=== PATIENT | male | born 1950 | race Caucasian/White ===

== ENCOUNTER 2018-05-21 06:28 | Day surgery (SDC) | payer OTHER ==
[2018-05-21] MEDS ORDERED: SODIUM CHLORIDE IRRIG SOLUTION 3,000 ML IRRIG.SOLN IR ONE (08:48)
[2018-05-21] MEDS ORDERED: FENTANYL CITRATE/PF 250 MCG/5 ML INJ. ONE (08:48)
[2018-05-21] MEDS ORDERED: FAMOTIDINE 20 MG/2 ML VIAL IV ONE (08:48)
[2018-05-21] MEDS ORDERED: ROCURONIUM BROMIDE 10 MG/ML 5ML VIAL ONE (08:48)
[2018-05-21] MEDS ORDERED: GLYCOPYRROLATE 0.2 MG/1 ML 1 ML ONE (08:48)
[2018-05-21] MEDS ORDERED: SUGAMMADEX SODIUM 200 MG/2 ML VIAL IV ONE (08:48)
[2018-05-21] MEDS ORDERED: DEXAMETHASONE SODIUM PHOSPHATE 10 MG/ML VIAL ONE (08:48)
[2018-05-21] MEDS ORDERED: ENOXAPARIN SODIUM 40 MG/0.4 ML DISP.SYRIN SQ ONE (08:48)
[2018-05-21] MEDS ORDERED: LIDOCAINE HCL 2% PF 100MG/5ML VIAL IJ ONE (08:48)
[2018-05-21] MEDS ORDERED: BUPIV. HCL 0.25% (2.5MG/ML)/EPI. (1:200,000) PF 30 ML VIAL IJ ONE (08:48)
[2018-05-21] MEDS ORDERED: ONDANSETRON HCL/PF 4 MG/ 2ML VIAL ONE (08:48)
[2018-05-21] MEDS ORDERED: LACTATED RINGERS 1,000 ML IV.SOLN IV ONE ×2 (08:48)
[2018-05-21] MEDS ORDERED: PROPOFOL 200 MG/20 ML VIAL IV ONE (08:48)
[2018-05-21] MEDS ORDERED: LIDOCAINE HCL 1% PF 300MG/30ML VIAL ONE (08:48)
[2018-05-21] MEDS ORDERED: SEVOFLURANE 250 ML LIQUID IH ONE (08:48)
[2018-05-21] MEDS ORDERED: ePHEDrine SULFATE 50 MG/1 ML IVP ONE (08:48)
[2018-05-21] MEDS ORDERED: CLINDAMYCIN PHOSPHATE 900 MG/6 ML VIAL ONE (08:48)
[2018-05-21] MEDS ORDERED: LEVALBUTEROL NEB 1.25 MG/3 ML VIAL.NEB NEB ONE (08:48)
--- NOTE | 2018-05-22 10:58 | Operative Note ---
PREOPERATIVE DIAGNOSIS: 1. Morbid obesity. 2. Type 2 diabetes. 3. Hypertension. 4. Gastroesophageal reflux disease. 5. Arthritis. POSTOPERATIVE DIAGNOSIS: 1. Morbid obesity. 2. Type 2 diabetes. 3. Hypertension. 4. Gastroesophageal reflux disease. 5. Arthritis. PROCEDURES PERFORMED: 1. Laparoscopic vertical sleeve gastrectomy. 2. Upper gastrointestinal endoscopy. SURGEON: Afshin Caldera M.D. INDICATIONS FOR PROCEDURE: Mr. Ellis is a 67-year-old male who presented with complaints of features of morbid obesity. He was noted to have a weight of 249 pounds with a BMI of 37.7. The patient was advised laparoscopic vertical sleeve gastrectomy and possible hiatal hernia repair. The patient showed understanding and agreed to proceed. DESCRIPTION OF PROCEDURE: After explaining to the patient in detail and informed consent was obtained, the patient was identified in the preoperative holding area. The patient was transferred to the operating room and was placed in supine position. Sequential compressive devices were placed for DVT prophylaxis. Preoperative antibiotics were given. After induction of anesthesia, the abdomen was prepped and draped in a sterile fashion. Through a left upper quadrant 1-cm incision, and using Optiview technique, the peritoneal cavity was entered and pneumoperitoneum was created. Thereafter, under direct vision, another 5-mm trocar was placed in the left midabdomen and another 15-mm trocar was placed in the right midabdomen. Through a 1-cm incision in the right subcostal region, another 5-mm trocar was placed. Through a 1-cm incision in the epigastrium, a Marjorie retractor was introduced and the left lobe of the liver was retracted. On initial inspection, the patient was noted to have no evidence of hiatal hernia. I took down the gastroepiploic vessels using a LigaSure. This was continued superiorly. The short gastric vessels were taken down. The gastrophrenic ligament was divided and the Angle of His was mobilized. The posterior attachments of the stomach on the pancreas were released. Distally, the gastroepiploic vessels were taken down up to about 4 cm proximal to the pylorus. At this point, a #38 Danish Hurst Bougie was introduced into the stomach and was placed along the lesser curve. The stomach was then divided in a vertical fashion with multiple Endo LEI Covidien Black Load Staplers. The first firing was directed outwards towards the greater curvature. Subsequent firings were directed towards the Angle of His to create a loose sleeve around the #38 Danish bougie. The bougie was then removed and an upper GI endoscopy was performed at this point. The scope was introduced into the esophagus and was gradually advanced into the stomach. The GE junction appeared normal. The sleeve size appeared normal. No evidence of any active bleeding was noted. The stomach was insufflated with air and irrigation of fluid along the staple line revealed no evidence of air leak. The stomach was then suctioned out and the scope was removed. Absolute hemostasis was ensured. Thorough saline irrigation was given. The Marjorie retractor was removed. Approximately 10 mL of a lidocaine- Marcaine mix was instilled under the left hemidiaphragm. The sleeve gastrectomy specimen was removed. The abdomen was then deflated. The incisions were closed with 4-0 Monocryl. Dermabond was applied. Approximately 10 mL of a lidocaine- Marcaine mix was injected into all the incisions. The patient was awakened from anesthesia and was transferred to the recovery room in stable condition. ESTIMATED BLOOD LOSS: Approximately 10 mL. CONDITION OF THE PATIENT: Stable. FLUIDS GIVEN: Per Anesthesia note. SPECIMEN(S) SENT: Sleeve gastrectomy specimen. COMPLICATIONS: None. ANESTHESIA: General. Afshin Caldera M.D. PRADEEP/kenisha Job #[id number] @ 0908 @ 1028 MTDD
== END 2018-05-21 10:20 | disposition other institution (70) ==
LOC: OPSURG 06:28
PROVIDERS: ATTEND Surgery
DX: E66.01 Morbid (severe) obesity due to excess calories (principal); Z68.37 Body mass index [BMI] 37.0-37.9, adult; E11.9 Type 2 diabetes mellitus without complications; I10 Essential (primary) hypertension; K21.9 Gastro-esophageal reflux disease without esophagitis; M19.90 Unspecified osteoarthritis, unspecified site
CPT/HCPCS: 43235; 43775; J1650; J2001; J2405; J2704; J3490; J7120; J7614

== ENCOUNTER 2018-05-21 10:21 | Inpatient (IN) | payer OTHER ==
[2018-05-21] MEDS ORDERED: MORPHINE SULFATE 10MG/0.5ML ORAL SOLN UD CUP PO PRN (10:31)
[2018-05-21] MEDS ORDERED: HYDROCODON-ACETAMIN 7.5-325/15ML SOLN UD CUP PO PRN (10:31)
[2018-05-21] MEDS ORDERED: ONDANSETRON HCL/PF 4 MG/ 2ML VIAL IVP PRN (10:31)
[2018-05-21] MEDS ORDERED: diphenhydrAMINE HCL 50 MG/ML VIAL IVP PRN (10:31)
[2018-05-21] MEDS ORDERED: MORPHINE SULFATE 4 MG/ML VIAL IVP PRN ×2 (10:31)
[2018-05-21] MEDS ORDERED: LEVALBUTEROL NEB 1.25 MG/3 ML VIAL.NEB IH PRN (10:31)
[2018-05-21 10:45] VITALS: BMI 38.5
--- NOTE | 2018-05-21 10:46 | History and Physical Report ---
History of Present Illnes - History of Present Illness Reason for Visit: S/P GASTRIC SLEEVE SURGERY History of Present Illness: Patient is a 67-year-old male who has tried multiple diets and exercise programs with no success. He has always struggled with his weight. He admits to binge eating. He has tried many diet plans, has tried many "fad" diets- he states that he would lose a little but would always gain it back and then some. Patient and surgeon decided to proceed with gastric sleeve procedure. Procedure went well- patient will be admitted and monitored s/p surgical intervention. Patient has been on a liquid diet prior to surgery so he is a risk of dehydration s/p surgery and with a history of diabetes. He will be admitted for IV hydration to help hydrate patient until he is able to tolerate a sufficient oral intake, will treat pain with IV medication until patient is able to tolerate oral meds, IV antiemetics to help reduce episodes of nausea and/or vomiting. Patient will be monitored closely using telemetry d/t h/o HTN and DM and will monitor blood pressures and blood sugar d/t obesity. - Past Medical History Cardiac: HTN, Hyperlipidemia, Other (EF 60%) Pulmonary: COPD Gastrointestinal: GERD Musculoskeletal: Osteoarthritis Infectious Disease: HIV Endocrine: Diabetes Dermatology: Other (varicose veins) - Past Surgical History Past Surgical History: Cholecystectomy, Other (Back 2015), Other (Foot 1969) - Past Family History Mother Family History: Cancer Father Family History: CAD - Past Social History Smoke: Quit (in 1988) Alcohol: None Drugs: None Lives: Alone Domestic Violence: Negative - Health Maintenance Health Maintenance: Influenza Vaccine, Pneumococcal Vaccine, HIV Influenza Vaccine: Current for this Influenza Season Pneumonia Vaccine: Yes Resuscitation Status: Resusciation Status Resuscitation Status Full Code - Unable to Obtain History Unable to Obtain: No Review of Systems - Review of Systems Constitutional: Weakness, Other (Still very tired s/p surgery) Eyes: negative: conjunctivae inflammation, eyelid inflammation ENT: negative: Ear Pain, Nose Discharge, Throat Pain Respiratory: negative: Cough, Shortness of Breath Cardiovascular: negative: Chest Pain, Light Headedness Gastrointestinal: Nausea (minimal- still drowsy), Abdominal Pain (minimal upon admission). negative: Vomiting Genitourinary: negative: Dysuria Musculoskeletal: negative: Back Pain Skin: negative: Rash, Other (dressing x 5 to abdomen) Neurological: Weakness - Medications/Allergies Allergies/Adverse Reactions: Allergies Allergy/AdvReac Type Severity Reaction Status Date / Time midazolam [From Versed] Allergy Severe Anaphylaxis Verified 05/21/18 09:27 Current Inpatient Medications: Current Inpatient Medications Hydrocodone Bitart/Acetaminophen (Hycet 7.5-325mg/15 Ml Ud Cup) 15 ml PO Q4 PRN PRN Reason: Moderate Pain (Score 5-7) Stop: 05/25/18 10:30 Diphenhydramine HCl (Benadryl) 25 mg IVP Q6H PRN PRN Reason: Sleeping and Itching Stop: 05/25/18 10:30 Enoxaparin Sodium (Lovenox) 40 mg SQ DAILY [facility] Stop: 06/05/18 08:59 Famotidine (Pepcid) 20 mg IVP BID [facility] Stop: 05/25/18 20:59 Promethazine HCl 25 mg/ Sodium (Chloride) 51 mls @ 200 mls/hr IV Q6 PRN PRN Reason: Nausea / Vomiting Stop: 05/25/18 10:30 Sodium Chloride (Normal Saline) 1,000 mls @ 150 mls/hr IV Q8H [facility] Clindamycin Phosphate 600 mg/ (Water) 50 mls @ 50 mls/hr IV Q8H [facility] Stop: 05/22/18 00:59 Ketorolac Tromethamine (Toradol) 30 mg IV Q6H PRN PRN Reason: For Mild Pain Stop: 05/25/18 10:30 Levalbuterol HCl (Xopenex Neb) 1.25 mg IH Q4H PRN PRN Reason: Wheezing Miscellaneous (Chem Sticks) 1 each MC Q6H [facility] Morphine Sulfate () 2 mg IVP Q2 PRN PRN Reason: PAIN 5-7 Morphine Sulfate () 4 mg IVP Q2 PRN PRN Reason: PAIN 8-10 Morphine Sulfate (Roxanol) 10 mg PO Q4 PRN PRN Reason: Severe Pain (Score 8-10) Stop: 05/25/18 10:30 Ondansetron HCl (Zofran) 4 mg IVP Q6H PRN PRN Reason: Nausea / Vomiting Stop: 05/25/18 10:30 Exam - Exam General: Alert, Oriented to Person, Oriented to Place, Oriented to Time, Cooperative (still very drowsy), Morbidly Obese HEENT: PERRLA, Mouth Mucous membr. moist/[place], Nose Mucous membr. moist/[place] Neck: Normal Range of Motion Carotids: No bruit Lungs: Clear to auscultation, Normal air movement. No: Respiratory Distress Cardiovascular: Regular rate, Normal S1, Normal S2 Peripheral Edema: None Peripheral Pulses: 2+ Abdomen: Soft, Decreased Bowel Sounds Integumentary: Normal, Warm, Dry, Pale, Other (Incision site x5- drsgs dry and intact) Extremities: No edema, Normal pulses, No tenderness/swelling Neurological: Normal speech, Strength Equal Bilat, Sensation intact Psych/Mental Status: Mental status NL, Mood NL Assessment/Plan - Assessment/Plan (1) S/P gastric surgery Status: Acute Current Visit: Yes Plan: Plan to admit for IV hydration, IV pain meds, and IV antiemetics. Lovenox and SCDs to help prevent DVTs, IS and frequent ambulation will be implemented. Start ice chips and advance diet as tolerated. (2) Morbid obesity due to excess calories Status: Acute Current Visit: Yes Plan: Patient is s/p gastric sleeve. We will assist patient with implementing gastric sleeve diet protocol starting with ice chips and clear liquids and advancing as tolerated. (3) Hypertension Status: Acute Current Visit: Yes Qualifiers: Hypertension type: essential hypertension Qualified Code(s): I10 - Essential (primary) hypertension Plan: Will hold blood pressure medications and monitor blood pressure closely- may have to restart meds. 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 Plan: Patient will ambulate frequently, pain medication will be given as directed, Patient may have K-pad (heating pad) if wanting (6) COPD (chronic obstructive pulmonary disease) Status: Acute Current Visit: Yes Qualifiers: COPD type: unspecified COPD Qualified Code(s): J44.9 - Chronic obstructive pulmonary disease, unspecified Plan: Order for supplemental oxygen if needed, Xopenox prn, will implement IS to use f requent VTE Assessment - RISK FACTOR SCORE VTE RISK FACTOR SCORES: AGE OVER 60 YEARS, OBESITY, MAJOR SURGERY/ANESTHESIA TIME > 1 HOUR (Lovenox daily, SCDs while in bed, frequent ambulation)
[2018-05-21] MEDS: 0.9 % SODIUM CHLORIDE 1,000 ML IV SCH ×2 (10:59→18:08)
[2018-05-21] MEDS: KETOROLAC TROMETHAMINE 30 MG/1ML VIAL IV PRN (11:28)
[2018-05-21] MEDS ORDERED: CLINDAMYCIN PHOSPHATE/D5W 600 MG/50 ML PIGGYBACK IV ONE (15:49)
[2018-05-21] MEDS ORDERED: CLINDAMYCIN PHOSPHATE/D5W 600 MG in PREMIX BAG 1 BAG IV SCH (16:00)
[2018-05-21] MEDS: CLINDAMYCIN PHOSPHATE IV SCH (16:03)
[2018-05-21] MEDS: FAMOTIDINE 20 MG/2 ML VIAL IVP SCH (19:57)
[2018-05-21] MEDS: [UNRECOGNIZED DRUG - OTHER] PO SCH (21:16)
[2018-05-22] MEDS: CLINDAMYCIN PHOSPHATE IV SCH (00:06)
[2018-05-22] MEDS: 0.9 % SODIUM CHLORIDE 1,000 ML IV SCH ×4 (01:31→21:04)
--- NOTE | 2018-05-22 07:29 | Inpatient Progress Note ---
Subjective - Required Recertification Statement I anticipate X number of days because-include discharge plan: 1 - Review of Systems Events since last encounter: Patient doing very well- per nursing he has been up ambulating in the halls frequently. He is using her incentive spirometer. He has minimal discomfort and minimal pain. Dressings are dry and intact. Bowel sounds present- passing gas and belching- no pain or discomfort in legs. He is still having some nausea but no vomiting- we will advance patients diet today and see how he does. We will keep him on telemetry due to history of HTN. We will continue to monitor his blood sugars closely due to significant diet change. Patient had requested his HIV medication at and his acyclovir- approved (patient not having any vomiting) General: Denies: Chills, Night Sweats HEENT: Denies: Head Aches, Ear Pain, Dysphasia Pulmonary: Denies: Dyspnea, Cough Cardiovascular: Denies: Chest Pain, Light Headedness Gastrointestinal: Nausea, Abdominal Pain. Denies: Vomiting Genitourinary: Denies: Dysuria Musculoskeletal: Denies: Back Pain Neurological: Weakness (s/p surgery) Objective - Exam Vitals and I&O: Vital Signs Temp 98.9 F 05/22/18 05:36 Pulse 74 05/22/18 05:36 Resp 20 05/22/18 05:36 BP 155/66 05/22/18 05:36 Pulse Ox 96 05/22/18 05:36 Intake & Output 05/21/18 05/21/18 05/22/18 11:59 23:59 11:59 Intake Total 100 60 Output Total 535 2500 350 Balance -535 -2400 -290 Weight 114.759 kg Intake: Oral 100 60 Output: Urine 475 2500 350 Emesis 60 Other: Voiding Method Urinal Urinal Urinal # Voids 1 General: Alert, Oriented to Person, Oriented to Place, Oriented to Time, Cooperative, No acute distress, Morbidly Obese HEENT: PERRLA, Mouth Mucous membr. moist/[place], Nose Mucous membr. moist/[place] Neck: Supple, +2 carotid pulse wo bruit Lungs: Clear to auscultation, Normal air movement, Speaks full Sentences Cardiovascular: Regular rate, Normal S1, Normal S2 Abdomen: Soft, Decreased Bowel Sounds Extremities: Normal pulses, No tenderness/swelling Skin: Normal, [place], Warm, Dry, Other (dressings dry/intact x 5) Neurological: Normal gait, Normal speech, Strength Equal Bilat, Normal tone, Sensation intact Psych/Mental Status: Mental status NL, Mood NL, Appropriate Affect, Intact Judgment Assessment/Plan - Assessment/Plan (1) S/P gastric surgery Status: Acute Current Visit: Yes Assessment: Patient c/o minimal discomfort- still some nausea- denies any leg pain- dressings are dry and intact- she is passing gas and belching. Plan: Will continue with IV hydration until patient has adequate oral intake, will transition form IV pain meds to oral, and continue IV antiemetics as needed. Will continue with Lovenox and SCDs to help prevent DVTs, IS and frequent ambulation will be implemented. (2) Morbid obesity due to excess calories Status: Acute Current Visit: Yes Assessment: pt did well with ice chips and water Plan: We will advance diet today to clear liquids (bariatric stage 1 diet) (3) Hypertension Status: Acute Current Visit: Yes Qualifiers: Hypertension type: essential hypertension Qualified Code(s): I10 - Essential (primary) hypertension Assessment: Blood pressures have been elevated- no complaints of chest pain, headaches, or TIA/CVA sx's Plan: Will give patient blood pressure meds today (Norvasc and Cozaar) (4) Type 2 diabetes mellitus Status: Acute Current Visit: Yes Qualifiers: Diabetes mellitus fpc insulin use: without fpc use Diabetes mellitus complication status: with hyperglycemia Qualified Code(s): E11.65 - Type 2 diabetes mellitus with hyperglycemia Assessment: Blood sugars are stable < 150 Plan: Will continue to hold meds and monitor blood sugars- they appear to be decreasing - last blood sugar 124 (5) Osteoarthritis Status: Acute Current Visit: Yes Qualifiers: Osteoarthritis location: multiple joints Osteoarthritis type: other secondary Qualified Code(s): 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 status and get pulse ox every 4 hours and prn
[2018-05-22] MEDS: PROMETHAZINE HCL 25 MG in 0.9 % SODIUM CHLORIDE 50 ML IV PRN ×3 (07:48→22:12)
[2018-05-22] MEDS ORDERED: FAMOTIDINE 20 MG/2 ML VIAL IV ONE (08:23)
[2018-05-22] MEDS: FAMOTIDINE 20 MG/2 ML VIAL IVP SCH ×2 (08:30→22:13)
[2018-05-22] MEDS: ENOXAPARIN SODIUM 40 MG/0.4 ML DISP.SYRIN SQ SCH (09:54)
[2018-05-22] MEDS: [UNRECOGNIZED DRUG - OTHER] PO SCH (09:55)
[2018-05-22] MEDS ORDERED: METOPROLOL TARTRATE 50 MG TABLET PO SCH (14:00)
[2018-05-22] MEDS ORDERED: amLODIPine BESYLATE 5 MG TABLET PO SCH (14:00)
[2018-05-22] MEDS ORDERED: LOSARTAN POTASSIUM 50 MG TABLET PO ONE (14:37)
[2018-05-22] MEDS: LOSARTAN POTASSIUM 50 MG TABLET PO SCH (14:38)
[2018-05-22] MEDS ORDERED: [UNRECOGNIZED DRUG - OTHER] PO SCH (21:00)
[2018-05-22] MEDS: KETOROLAC TROMETHAMINE 30 MG/1ML VIAL IV PRN (22:12)
[2018-05-23] MEDS: 0.9 % SODIUM CHLORIDE 1,000 ML IV SCH ×2 (03:41→12:29)
--- NOTE | 2018-05-23 06:27 | Discharge Summary ---
Discharge Summary - Discharge Sumary Date: 05/23/18 History of Present Illness: Patient is a 67-year-old male who has tried multiple diets and exercise programs with no success. He has always struggled with his weight. He admits to binge eating. He has tried many diet plans, has tried many "fad" diets- he states that he would lose a little but would always gain it back and then some. Patient and surgeon decided to proceed with gastric sleeve procedure. Procedure went well- patient will be admitted and monitored s/p surgical intervention. Patient has been on a liquid diet prior to surgery so he is a risk of dehydration s/p surgery and with a history of diabetes. He will be admitted for IV hydration to help hydrate patient until he is able to tolerate a sufficient oral intake, will treat pain with IV medication until patient is able to tolerate oral meds, IV antiemetics to help reduce episodes of nausea and/or vomiting. Patient will be monitored closely using telemetry d/t h/o HTN and DM and will monitor blood pressures and blood sugar d/t obesity. Condition at Discharge: Stable Home Medications: Ambulatory Orders Medication Instructions Recorded Acyclovir [Zovirax] 400 mg PO BID 05/21/18 Albuterol Sulfate [Proair 2 puff INH Q4 PRN 05/21/18 Respiclick] Bictegrav/Emtricit/Tenofov Ala 1 tab PO D 05/21/18 [Biktarvy 50-200-25 mg Tablet] Fenofibrate Nanocrystallized 145 mg PO D 05/21/18 [Fenofibrate] Loperamide HCl [Loperamide] 2 mg PO Q4 PRN 05/21/18 Losartan Potassium [Cozaar] 100 mg PO D 05/21/18 Metformin HCl 500 mg PO D 05/21/18 Metoprolol Tartrate 50 mg PO D 05/21/18 Omeprazole 20 mg PO BID 05/21/18 amLODIPine BESYLATE [Norvasc] 10 mg PO D 05/21/18 gliPIZIDE [Glucotrol] 5 mg PO D 05/21/18 Consultations this Visit: None Procedures this Visit: Other (S/P Gastric Surgery) Allergies/Adverse Reactions: Allergies Allergy/AdvReac Type Severity Reaction Status Date / Time midazolam [From Versed] Allergy Severe Anaphylaxis Verified 05/21/18 09:27 Patient Problems: Current Active Problems Problem Status Onset COPD (chronic obstructive pulmonary disease) Acute Hypertension Acute Morbid obesity due to excess calories Acute Osteoarthritis Acute S/P gastric surgery Acute Type 2 diabetes mellitus Acute Discharge Summary: Patient is a 67-year-old male that underwent the gastric sleeve procedure and has done well. He has been very cooperative with his care by ambulating frequently, using her incentive spirometer, and wearing his SCDs while in bed. He has been compliant with his diet during hospitalization. He is having minimal discomfort at this time and minimal nausea- he has is passing gas and belching. He is aware of discharge instructions and what he can and cannot do post surgical- he is aware of the strict diet he must follow to decrease discomfort and have success after procedure. He has family support and family will be taking him home- medications written by surgeon given to patient. He feels ready to go home. Hospital Course: Patient received pain medications, antiemetics, and IVF and was transitioned to oral. She has been up ambulating and using incentive spirometer. - Final Diagnosis (1) S/P gastric surgery Problems: Incision without redness or drainage, positive bowel sounds, minimal discomfort, belching and flatus, no extremity pain or edema Right or Left: Right (2) Morbid obesity due to excess calories Problems: Continue to follow bariatric surgery Right or Left: Right (3) Hypertension Problems: Continue with blood pressure medication- take blood pressures daily and keep log- take to follow up appointment Right or Left: Right (4) Type 2 diabetes mellitus Problems: Hold diabetic medications- check blood sugar daily and keep log- take to follow up appointment Right or Left: Right (5) Osteoarthritis Problems: Stable Right or Left: Right (6) COPD (chronic obstructive pulmonary disease) Problems: Stable- continue home meds Right or Left: Right
[2018-05-23] MEDS: FAMOTIDINE 20 MG/2 ML VIAL IVP SCH (08:24)
[2018-05-23] MEDS: LOSARTAN POTASSIUM 50 MG TABLET PO SCH (08:25)
[2018-05-23] MEDS: ENOXAPARIN SODIUM 40 MG/0.4 ML DISP.SYRIN SQ SCH (08:25)
[2018-05-23] MEDS ORDERED: amLODIPine BESYLATE 5 MG TABLET PO SCH (09:00)
[2018-05-23 13:43] VITALS: BP 144/71
== END 2018-05-23 13:30 | disposition home or self-care (01) | DRG 948 ==
LOC: SOUTH 10:21
PROVIDERS: ADMIT Nurse Practitioner Family; ATTEND Nurse Practitioner Family
DX: G89.18 Other acute postprocedural pain (principal); R11.0 Nausea; E66.01 Morbid (severe) obesity due to excess calories; E11.65 Type 2 diabetes mellitus with hyperglycemia; I10 Essential (primary) hypertension; J44.9 Chronic obstructive pulmonary disease, unspecified
CPT/HCPCS: 97116; 97535; A9270; J1650; J1885; J2405; J2550; J7030; 99222; 99231; 99238; S1016